=== PATIENT | male | born 1970 | race Caucasian/White ===

== ENCOUNTER → 2018-02-19 17:44 | Outpatient (CLI) | payer OTHER, MEDICAID, SELFPAY ==
--- NOTE | 2018-02-19 | DI.MRI.S_ITS ---
PROCEDURE: MR HEAD/BRAIN WO/W CON INDICATIONS: UNEXPLICABLE BEHAVIOR PSYCHOSIS TECHNIQUE: Noncontrast axial T1 spin echo, axial T2 fast spin echo, sagittal and axial FLAIR, coronal T2 fast spin echo, axial gradient echo, axial diffusion and ADC through the brain. After the administration of contrast, axial and coronal 3D VIBE or T1 spin echo with fat saturation through the brain. COMPARISON: None. FINDINGS: Image quality: Excellent. CSF Spaces: Basal cisterns are patent. No extra-axial fluid collections. Ventricles are normal in size and shape. Brain: No midline shift. No intracranial bleeds or masses. No abnormal intracranial enhancement. The brainstem appears normal. Diffusion-weighted images demonstrate no acute ischemic insults. No chronic ischemic insults. Normal intravascular flow voids are present. Skull and face: Calvarial marrow is normal in signal. Orbits appear normal. Sinuses: Mastoids appear clear. There are air-fluid levels in maxillary sinuses bilaterally. Mucosal thickening is present in frontal, ethmoid and sphenoid sinuses bilaterally. IMPRESSION: 1. No acute intracranial abnormalities. 2. Pansinusitis. Dictated by: Riddhi Singh M.D. on 02/19/2018 at 22:22 Transcribed by: LOUISE on 02/19/2018 at 22:24 Approved by: Riddhi Singh M.D. on 02/20/2018 at 9:14
== END ==
PROVIDERS: PCP Family Medicine; Visit Provider Physician Assistant
DX: F29 Unspecified psychosis not due to a substance or known physiological condition (principal); J32.4 Chronic pansinusitis
CPT/HCPCS: 70553; A9579

== ENCOUNTER → 2022-03-22 12:53 | Outpatient (CLI) | payer OTHER, SELFPAY ==
--- NOTE | 2022-03-22 | DI.RAD.S_ITS ---
PROCEDURE: XR HAND LT MIN 3V INDICATIONS: BILATERAL HAND PAIN TECHNIQUE: 3 views of the hand(s) acquired. COMPARISON: [facility], CR, XR HAND RT MIN 3V, 03/22/2022, 13:03. FINDINGS: Bones: No fractures or dislocations. Carpal bones are normally aligned. No suspicious bony lesions. Minimal scattered IP degenerative narrowing. Soft tissues: No suspicious soft tissue calcifications. IMPRESSION: Minimal changes of early arthritis. Dictated by: bAida Morales M.D. on 03/22/2022 at 16:51 Approved by: Abida Morales M.D. on 03/22/2022 at 16:52
--- NOTE | 2022-03-22 | DI.RAD.S_ITS ---
PROCEDURE: XR HAND RT MIN 3V INDICATIONS: BILATERAL HAND PAIN TECHNIQUE: 3 views of the hand(s) acquired. COMPARISON: None. FINDINGS: Bones: No fractures or dislocations. Carpal bones are normally aligned. No suspicious bony lesions. Minimal scattered IP narrowing. No visualized erosions. Soft tissues: No suspicious soft tissue calcifications. IMPRESSION: Minimal early IP degenerative change. Dictated by: Abida Morales M.D. on 03/22/2022 at 16:50 Approved by: Abida Morales M.D. on 03/22/2022 at 16:51
== END ==
PROVIDERS: PCP Family Medicine; Referring Provider Internal Medicine Cardiovascular Disease; Visit Provider Internal Medicine Cardiovascular Disease
DX: M79.642 Pain in left hand (principal); M79.641 Pain in right hand; M19.042 Primary osteoarthritis, left hand
CPT/HCPCS: 73130

== ENCOUNTER → 2023-08-31 09:23 | Outpatient (CLI) | payer OTHER, MEDICAID, SELFPAY ==
[2023-08-31 19:21] LABS: Add Manual Diff / Slide Review NO; Basophils Absolute Auto 100 /uL (0-100); Basophils Percent Auto 0.5 % (0-2); Eosinophils Absolute Auto 700 /uL (0-450); Eosinophils Percent Auto 6.7 % (2-4); Hematocrit 43.4 % (41-53); Hemoglobin 14.9 g/dL (13.5-17.5); Lymphocytes Absolute Auto 2600 /uL (1100-4500); Lymphocytes Percent Auto 24.3 % (25-40); Mean Corpuscular HGB Conc 34.4 % (30-36); Mean Corpuscular Hemoglobin 30.9 PG (26-34); Mean Corpuscular Volume 89.7 fL (80-100); Monocytes Absolute Auto 500 /uL (0-900); Monocytes Percent Auto 5.2 % (3-14); Neutrophils Absolute Auto 6700 /uL (1500-7000); Neutrophils Percent Auto 63.3 % (50-75); Platelet Count 234 X10^3/uL (150-400); Red Blood Cell Count 4.84 X10^6/uL (4.5-5.9); Red Cell Distribution Width 14.1 % (11.6-14.8); White Blood Cell Count 10.5 X10^3/uL (4.5-11.0)
[2023-08-31 22:43] LABS: BUN Creatinine Ratio 24.6 (6-22); Blood Urea Nitrogen 17 mg/dL (9-20); Calcium 9.4 mg/dL (8.4-10.2); Carbon Dioxide 25 mmol/L (22-32); Chloride 104 mmol/L (98-107); Cholesterol 186 mg/dL (140-199); Estimated Glomerular Filt Rate > 60 mL/min (>60); Glucose 92 mg/dL (70-100); HDL Cholesterol 57 mg/dL (40-60); HEMOLYSIS < 15 (0-50); LDL Cholesterol Calculated 119 mg/dL (<100); Potassium 4.6 mmol/L (3.4-5.1); Sodium 137 mmol/L (137-145); Triglycerides 52 mg/dL (35-150)
[2023-08-31 23:17] LABS: Prostate Specific Antigen Scrn 0.641 ng/mL (0.1-4.0)
== END ==
PROVIDERS: PCP Physician Assistant Medical; Visit Provider Family Medicine
DX: F32.A Depression, unspecified (principal); Z13.220 Encounter for screening for lipoid disorders; Z12.5 Encounter for screening for malignant neoplasm of prostate; Z71.85 Encounter for immunization safety counseling; Z13.6 Encounter for screening for cardiovascular disorders
CPT/HCPCS: 80048; 80061; 85025; G0103

== ENCOUNTER → 2024-11-28 13:11 | Outpatient (CLI) | payer OTHER, SELFPAY ==
[2024-11-28 21:04] LABS: Hematocrit 44.4 % (41-53); Hemoglobin 15.2 g/dL (13.5-17.5); Mean Corpuscular HGB Conc 34.3 % (30-36); Mean Corpuscular Hemoglobin 31.1 PG (26-34); Mean Corpuscular Volume 90.7 fL (80-100); Platelet Count 235 X10^3/uL (150-400)
[2024-11-28 21:07] LABS: Add Manual Diff / Slide Review YES
[2024-11-28 21:09] LABS: Alanine Aminotransferase 18 IU/L (<50); Albumin 4.2 g/dL (3.5-5.0); Albumin Globulin Ratio 1.4 (1.0-2.8); Alkaline Phosphatase 51 U/L (38-126); Blood Urea Nitrogen 12 mg/dL (9-20); Calcium 9.6 mg/dL (8.4-10.2); Carbon Dioxide 22 mmol/L (22-32); Chloride 99 mmol/L (98-107); Estimated Glomerular Filt Rate > 60 mL/min (>60); Globulin 2.9 g/dL (1.7-4.1); Glucose 152 mg/dL (70-99); HEMOLYSIS < 15 (0-50); Potassium 4.6 mmol/L (3.4-5.1); Sodium 130 mmol/L (137-145); Total Protein 7.1 g/dL (6.3-8.2)
[2024-11-28 21:22] LABS: Band Neutrophils Percent 1.0 % (3-7); Eosinophils Percent Manual 3.0 % (2-4); Lymphocytes Percent Manual 31.0 % (25-45); Monocytes Percent Manual 7.0 % (2-11); Neutrophils Absolute Manual 4838 /uL (3000-5900); Segmented Neutrophils Percent 58.0 % (38-70); Total Cells Counted 100
[2024-11-28 21:23] LABS: RBC Morphology Normal Morphology
[2024-11-28 21:34] LABS: Thyroid Stimulating Hormone 1.36 uIU/mL (0.47-4.68)
[2024-12-02 20:36] LABS: QuantiFERON Mitogen Value >10.00 IU/mL (.); QuantiFERON Nil Value 0.05 IU/mL (.); QuantiFERON TB Gold Plus Negative (Negative); QuantiFERON TB1 Ag Value 0.18 IU/mL (.); QuantiFERON TB2 Ag Value 0.26 IU/mL (.)
== END ==
PROVIDERS: PCP Family Medicine; Visit Provider Family Medicine
DX: J32.9 Chronic sinusitis, unspecified (principal); R04.2 Hemoptysis; R07.81 Pleurodynia
CPT/HCPCS: 80053; 84443; 85007; 85025; 85651; 86140; 86480